=== PATIENT | female | born 1985 | race Caucasian/White ===

== ENCOUNTER 2019-07-19 15:59 | Emergency (ER) | payer SELFPAY ==
[2019-07-19] MEDS ORDERED: Ondansetron 4 MG Tab.DIS PO ONE (16:22)
--- NOTE | 2019-07-19 16:24 | EDM.PDOC ---
ED [facility] GENERAL MEDICAL PROBLEM - General Chief Complaint: Gastrointestinal Problem Stated Complaint: NAUSEA Time Seen by Provider: 07/19/19 16:22 Source of Information: Reports: Patient History Limitations: Reports: No Limitations - History of Present Illness INITIAL COMMENTS - FREE TEXT/NARRATIVE: Patient is a 34-year-old female past medical history of depression presenting with a chief complaint of nausea. Patient reports feeling nauseous for the past 2 to 3 days. Patient states she is associated vomiting and has vomited 1 time today and several times yesterday. The vomit is not bloody or bilious. Patient states that nausea seems to be worse at night. Patient denies any fevers, chills, abdominal pain, back pain, upper respiratory symptoms, body aches. Patient does states she has been having increased urinary frequency but no dysuria and no suprapubic pain. Patient has not taken any medications prior to arrival. Patient reports no bad food no sick contacts. Pmhx: None Pshx: None Family Hx: noncontributory Smoking history? no Etoh use? none Drug use? none In addition to that documented in the HPI above, the additional ROS was obtained : Constitutional: Denies fevers or chills Eyes: Denies vision changes ENMT: Denies sore throat CV: Denies chest pain Resp: Denies SOB GI: Per HPI : Denies painful urination MSK: Denies recent trauma Skin: Denies new rashes Neuro: Denies new numbness or tingling or weakness Endocrine: Denies unexpected weight loss Heme: Denies bleeding disorders I have reviewed the triage vital signs Const: Well nourished, well developed, appears stated age. Well-appearing Eyes: PERRL, no conjunctival injection HENT: NCAT, Neck supple without meningismus CV: RRR, Warm, well-perfused extremities RESP: CTAB, Unlabored respiratory effort GI: soft, non-tender, non-distended, no masses, no guarding or rebound MSK: No gross deformities appreciated Skin: Warm, dry. No rashes Neuro: Alert, direct sales professional II-XII grossly intact. Sensation and motor function of extremities grossly intact. Psych: Appropriate mood and affect Assessment and plan: Patient 34-year-old female presenting with a chief complaint of nausea and urinary frequency. Patient had benign abdominal exam and no real abdominal complaints of the nausea and vomiting. Patient urinalysis demonstrated of urinary tract infection as well as positive test. Based on menstrual. Patient is likely only 2 to 4 weeks . Patient not complaining of vaginal bleeding or lower abdominal pain that would be concerning for an ectopic at this time. Patient is tolerating p.o. after antiemetics given in the ER. Patient initiated on antibiotics in the ER. Patient is new to the area and will be established with [facility] follow-up next week. All questions addressed and answered. Patient agrees with plan. Patient given return precautions to the ER. - Related Data Allergies Allergy/AdvReac Type Severity Reaction Status Date / Time No Known Allergies Allergy Verified 07/19/19 16:08 Home Meds: Home Meds ALPRAZolam [Xanax] 0.5 mg PO ASDIRECTED PRN 07/19/19 [History] Doxylamine Succinate/Vit B6 [Doxylamine-Pyridoxine 10-10 mg] 1 each PO BID PRN # 20 tablet. 07/19/19 [Rx] Nitrofurantoin Monohyd/M-Cryst [Macrobid 100 mg Capsule] 100 mg PO BID #10 capsule 07/19/19 [Rx] Sertraline [Zoloft] 100 mg PO DAILY 07/19/19 [History] Past Medical History Gastrointestinal History: Reports: GERD [facility] History: Reports: Other [facility] History: recent miscarriage, a couple months ago. Psychiatric History: Reports: Anxiety, Depression - Infectious Disease History Infectious Disease History: Reports: Chicken Pox - Past Surgical History Other HEENT Surgeries/Procedures: autoplasty Social & Family History - Tobacco Use Smoking Status *Q: Current Every Day Smoker Years of Tobacco use: 15 Packs/Tins Daily: 0.5 - Caffeine Use Caffeine Use: Reports: Coffee - Recreational Drug Use Recreational Drug Use: Yes ED ROS GENERAL - Review of Systems Review Of Systems: See Below ED EXAM, GI/ABD - Physical Exam Exam: See Below Course - Vital Signs Last Recorded V/S: Last Vital Signs Temp 36.1 C 07/19/19 16:10 Pulse 103 H 07/19/19 16:10 Resp 16 07/19/19 16:10 BP 124/89 07/19/19 16:10 Pulse Ox 99 07/19/19 16:10 - Orders/Labs/Meds Orders: Active Orders 24 hr Category Date Time Status CULTURE URINE [RM] Stat Lab 07/19/19 16:25 Received HCG QUALITATIVE,URINE [URCHEM] Stat Lab 07/19/19 16:22 Ordered UA RFX SOUMYA AND CULT IF INDIC [URIN] Stat Lab 07/19/19 16:22 Ordered Labs: Laboratory Tests 07/19/19 07/19/19 Range/Units 16:22 16:22 Urine Color YELLOW Urine Appearance HAZY Urine pH 5.5 (5.0-8.0) Ur Specific [place] 1.025 (1.001-1.035) Urine Protein 30 H (NEGATIVE) mg/dL Urine Glucose (UA) NEGATIVE (NEGATIVE) mg/dL Urine Ketones TRACE H (NEGATIVE) mg/dL Urine Occult Blood TRACE-LYSED H (NEGATIVE) Urine Nitrite NEGATIVE (NEGATIVE) Urine Bilirubin SMALL H (NEGATIVE) Urine Ictotest NEGATIVE Urine Urobilinogen 0.2 (<2.0) EU/dL Ur Leukocyte Esterase SMALL H (NEGATIVE) Urine RBC 1-5 (0-2/HPF) Urine WBC 20-30 (0-5/HPF) Ur Epithelial Cells FEW (NONE-FEW) Urine Bacteria 3+ H (NEGATIVE) Urine Mucus LIGHT (NONE-MOD) Urine HCG, Qual POSITIVE (NEGATIVE) Meds: Medications Discontinued Medications Generic Name Dose Route Start Last Admin Trade Name Freq PRN Reason Stop Dose Admin Nitrofurantoin Macrocrystals 100 mg 07/19/19 16:51 Macrobid PO 07/19/19 16:52 ONETIME ONE Ondansetron HCl 4 mg 07/19/19 16:22 07/19/19 16:24 Zofran Odt PO 07/19/19 16:23 4 mg ONETIME ONE Administration Departure - Departure Time of Disposition: 16:53 Disposition: Home, Self-Care 01 Clinical Impression: test positive, UTI, Urinary tract infectious disease - Discharge Information Prescriptions: Doxylamine Succinate/Vit B6 [Doxylamine-Pyridoxine 10-10 mg] 1 each PO BID PRN # 20 tablet.dr ANDREWS Reason: Nausea Nitrofurantoin Monohyd/M-Cryst [Macrobid 100 mg Capsule] 100 mg PO BID #10 capsule Instructions: and Urinary Tract Infection Referrals: PCP,Not In Area [Primary Care Provider] - Forms: ED Department Discharge Additional Instructions: The following information is given to patients seen in the emergency department who are being discharged to home. This information is to outline your options for follow-up care. We provide all patients seen in our emergency department with a follow-up referral. The need for follow-up, as well as the timing and circumstances, are variable depending upon the specifics of your emergency department visit. If you don't have a primary care physician on staff, we will provide you with a referral. We always advise you to contact your personal physician following an emergency department visit to inform them of the circumstance of the visit and for follow-up with them and/or the need for any referrals to a consulting specialist. The emergency department will also refer you to a specialist when appropriate. This referral assures that you have the opportunity for follow-up care with a specialist. All of these measure are taken in an effort to provide you with optimal care, which includes your follow-up. Under all circumstances we always encourage you to contact your private physician who remains a resource for coordinating your care. When calling for follow-up care, please make the office aware that this follow-up is from your recent emergency room visit. If for any reason you are refused follow-up, please contact the [facility] Emergency Department at and asked to speak to the emergency department charge nurse. Sepsis Event Note - Evaluation Sepsis Screening Result: No Definite Risk - Focused Exam Vital Signs: Vital Signs Temp Pulse Resp BP Pulse Ox 07/19/19 16:10 36.1 C 103 H 16 124/89 99 Date Exam was Performed: 07/19/19 Time Exam was Performed: 16:53 - My Orders Last 24 Hours: My Active Orders 07/19/19 16:22 HCG QUALITATIVE,URINE [URCHEM] Stat UA RFX SOUMYA AND CULT IF INDIC [URIN] Stat 07/19/19 16:25 CULTURE URINE [RM] Stat - Assessment/Plan Last 24 Hours: My Active Orders 07/19/19 16:22 HCG QUALITATIVE,URINE [URCHEM] Stat UA RFX SOUMYA AND CULT IF INDIC [URIN] Stat 07/19/19 16:25 CULTURE URINE [RM] Stat
[2019-07-19] MEDS ORDERED: Nitrofurantoin Monohydrate/Macrocrystalline 100 MG Cap PO ONE (16:51)
== END 2019-07-19 17:25 | disposition home or self-care (01) ==
LOC: MW.ED 15:59
DX: O23.41 Unspecified infection of urinary tract in pregnancy, first trimester (principal); O99.331 Smoking (tobacco) complicating pregnancy, first trimester; F17.210 Nicotine dependence, cigarettes, uncomplicated; O99.341 Other mental disorders complicating pregnancy, first trimester; F41.9 Anxiety disorder, unspecified; F32.9 Major depressive disorder, single episode, unspecified; Z79.899 Other long term (current) drug therapy
CPT/HCPCS: 81001; 81025; 87086; 87088; 87186; 99283; A9270; 99282

== ENCOUNTER 2019-10-08 08:32 | Day surgery (SDC) | payer SELFPAY ==
[2019-10-07 10:26] LABS: BLOOD UREA NITROGEN,BUN 13 mg/dL (7.0-18.0); CHLORIDE,CL 98 mmol/L (98-107); GLUCOSE RANDOM 92 mg/dL (74-106); POTASSIUM,K 3.2 mmol/L (3.5-5.1); SODIUM,NA 136 mmol/L (136-145)
[~2019-10-08 08:32] MED LIST: Lactated Ringers 1,000 ML IV SCH
[2019-10-08] MEDS ORDERED: Naloxone 0.4 MG/ML Syringe IVPUSH PRN (08:53)
[2019-10-08] MEDS ORDERED: Albuterol 0.083% 2.5 MG/3 ML Neb Soln NEB PRN (08:53)
[2019-10-08] MEDS ORDERED: fentaNYL 100 MCG/2 ML SDV IVPUSH PRN (08:53)
[2019-10-08] MEDS ORDERED: 50% Dextrose in Water 50 ML Syringe IVPUSH PRN (08:53)
[2019-10-08] MEDS ORDERED: EPINEPHrine 1:10,000 1 MG/10 ML Syringe IVPUSH PRN (08:53)
[2019-10-08] MEDS ORDERED: Atropine 0.1 MG/ML 10 ML Syringe IVPUSH PRN ×2 (08:53)
[2019-10-08] MEDS ORDERED: Midazolam 1 MG/ML 2 ML SDV ONE (09:11)
[2019-10-08] MEDS ORDERED: fentaNYL 100 MCG/2 ML SDV ONE (09:12)
[2019-10-08] MEDS ORDERED: Propofol 200 MG/20 ML SDV ONE ×2 (09:12)
[2019-10-08] MEDS ORDERED: Glycopyrrolate 0.2 MG/ML SDV ONE (09:14)
--- NOTE | 2019-10-08 09:15 | PCM.PREANE ---
Preanesthetic Assessment - Anesthesia/Transfusion/Family Hx Anesthesia History: Prior Anesthesia Without Reaction Family History of Anesthesia Reaction: No Transfusion History: No Prior Transfusion(s) Intubation History: Unknown - Review of Systems General: No Symptoms Pulmonary: No Symptoms Cardiovascular: No Symptoms Gastrointestinal: No Symptoms Neurological: No Symptoms Other: Reports: None - Physical Assessment Height: 5 ft 4 in Weight: 52.163 kg ASA Class: 2 Mental Status: Alert & Oriented x3 Airway Class: Mallampati = 1 Dentition: Reports: Normal Dentition (small chips x2 upper front) Thyro-Mental Finger Breadths: 3 Mouth Opening Finger Breadths: 3 ROM/Head Extension: Full Lungs: Clear to Auscultation, Normal Respiratory Effort Cardiovascular: Regular Rate, Regular Rhythm - Lab Values: Laboratory Last Values Sodium 136 mmol/L (136-145) 10/07/19 09:23 Potassium 3.2 mmol/L (3.5-5.1) L 10/07/19 09:23 Chloride 98 mmol/L (98-107) 10/07/19 09:23 Carbon Dioxide 30.0 mmol/L (21.0-32.0) 10/07/19 09:23 BUN 13 mg/dL (7.0-18.0) 10/07/19 09:23 Creatinine 0.9 mg/dL (0.6-1.0) 10/07/19 09:23 Est Cr Clr Drug Dosing 71.84 mL/min 10/07/19 09:23 Estimated GFR (MDRD) > 60.0 ml/min 10/07/19 09:23 Glucose 92 mg/dL (74-106) 10/07/19 09:23 Calcium 9.1 mg/dL (8.5-10.1) 10/07/19 09:23 HCG, Quant 1.0 mIU/mL 10/07/19 09:23 - Allergies Allergies/Adverse Reactions: Allergies Allergy/AdvReac Type Severity Reaction Status Date / Time No Known Allergies Allergy Verified 10/03/19 13:17 - Blood Blood Available: No - Anesthesia Plan Pre-Op Medication Ordered: None - Acknowledgements Anesthesia Type Planned: MAC (general anesthesia back-up plan) Pt an Appropriate Candidate for the Planned Anesthesia: Yes Alternatives and Risks of Anesthesia Discussed w Pt/Guardian: Yes Pt/Guardian Understands and Agrees with Anesthesia Plan: Yes PreAnesthesia Questionnaire HEENT History: Reports: Other (See Below) Other HEENT History: wears glasses/contacts Cardiovascular History: Reports: None Respiratory History: Reports: None Gastrointestinal History: Reports: GERD, Other (See Below) Other Gastrointestinal History: intermittent nausea Genitourinary History: Reports: None SHIRT HEMMER History: Reports: , Spontaneous , Other (See Below) Other OB/BYN History: HPV Musculoskeletal History: Reports: None Neurological History: Reports: None Psychiatric History: Reports: Anxiety, Depression Endocrine/Metabolic History: Reports: None Hematologic History: Reports: None Immunologic History: Reports: None Oncologic (Cancer) History: Reports: None Dermatologic History: Reports: None - Infectious Disease History Infectious Disease History: Reports: Chicken Pox - Past Surgical History Head Surgeries/Procedures: Reports: None HEENT Surgical History: Reports: Other (See Below) Other HEENT Surgeries/Procedures: cosmetic autoplasty-left ear Cardiovascular Surgical History: Reports: None Respiratory Surgical History: Reports: None GI Surgical History: Reports: None Female Surgical History: Reports: None Endocrine Surgical History: Reports: None Neurological Surgical History: Reports: None Musculoskeletal Surgical History: Reports: None Oncologic Surgical History: Reports: None Dermatological Surgical History: Reports: None - SUBSTANCE USE Smoking Status *Q: Light Tobacco Smoker (5 cigarettes per day - trying to quit) Tobacco Use Within Last Twelve Months: Cigarettes - HOME MEDS Home Medications: Home Meds ALPRAZolam [Xanax] 0.5 mg PO ASDIRECTED PRN 07/19/19 [History] Sertraline [Zoloft] 100 mg PO DAILY 07/19/19 [History] Magnesium Oxide/Magnesium [Magnesium] 300 mg PO DAILY 10/03/19 [History] Omeprazole 20 mg PO ASDIRECTED 10/03/19 [History] Potassium Chloride 20 meq PO BID 10/03/19 [History] ondansetron HCL [Zofran] 4 mg PO ASDIRECTED PRN 10/03/19 [History] - CURRENT (IN HOUSE) MEDS Current Meds: Current Medications Albuterol (Proventil Neb Soln) 2.5 mg NEB ONETIME PRN PRN Reason: Wheezing Atropine Sulfate (Atropine 0.1 Mg/Ml) 0.5 mg IVPUSH ASDIRECTED PRN PRN Reason: Hypo-perfusion Atropine Sulfate (Atropine 0.1 Mg/Ml) 1 mg IVPUSH ASDIRECTED PRN PRN Reason: Hypo-Perfusion Dextrose/Water (Dextrose 50% In Water) 50 ml IVPUSH ASDIRECTED PRN PRN Reason: Hypoglycemia Epinephrine HCl (Epinephrine 1:10,000) 1 mg IVPUSH ASDIRECTED PRN PRN Reason: ACLS Guidelines Fentanyl (Sublimaze) 50 - 100 mcg IVPUSH Q5M PRN PRN Reason: Pain Lactated Ringer's (Ringers, Lactated) 1,000 mls @ 100 mls/hr IV ASDIRECTED GABRIEL Naloxone HCl (Narcan) 0.1 mg IVPUSH ASDIRECTED PRN PRN Reason: Respiratory Depression
--- NOTE | 2019-10-08 11:28 | PCM.OPNOTE ---
- General Post-Op/Procedure Note Date of Surgery/Procedure: 10/08/19 Operative Procedure(s): LEEP Pre Op Diagnosis: High grade cervical dysplasia Anesthesia Technique: DERREK Primary Surgeon: Danuta Ye Secondary Surgeon: Bertha Verma Anesthesia Provider: Mojgan Brown [facility] Pathology: Ectocervix open at 12 o'clock; endocervical curettings EBL in mLs: 5 Complications: None known Condition: Good Free Text/Narrative:: 34 yo s/p LEEP for high grade cervical dysplasia, no known complications, patient progressing well
--- NOTE | 2019-10-08 11:39 | PCM.POSTAN ---
POST ANESTHESIA ASSESSMENT - MENTAL STATUS Mental Status: Alert, Oriented - VITAL SIGNS Vital Signs: Last Vital Signs Temp 98.4 F 10/08/19 11:24 Pulse 86 10/08/19 11:35 Resp 14 10/08/19 11:35 BP 95/56 L 10/08/19 11:35 Pulse Ox 100 10/08/19 11:35 - RESPIRATORY Respiratory Status: Respiratory Rate WNL, Airway Patent, O2 Saturation Stable - CARDIOVASCULAR CV Status: Pulse Rate WNL, Blood Pressure Stable - GASTROINTESTINAL GI Status: No Symptoms - PAIN Pain Score: 0 - POST OP HYDRATION Hydration Status: Adequate & Stable
--- NOTE | 2019-10-08 12:06 | OR ---
SURGEON: Danuta Ye M.D. DATE OF PROCEDURE: 10/08/2019 PREOPERATIVE DIAGNOSIS: Cervical intraepithelial neoplasia 3. POSTOPERATIVE DIAGNOSIS: Cervical intraepithelial neoplasia 3. PROCEDURE: Loop electrode excisional procedure. PRIMARY SURGEON: Danuta Ye MD VISUALIZER: ALBA Baker. ANESTHESIA: MAC with cervical block. FINDINGS: Upon colposcopy, the transition zone was entirely visualized. There were two small areas of acetowhite epithelium at 6 and 10 o'clock. SPECIMENS: Ectocervix open at 12 o'clock and endocervical curettings. COMPLICATIONS: None known. DISPOSITION: Stable to Recovery. BRIEF HISTORY: This is a 34-year-old female. She had low-grade SETH positive HPV. However, she had severe dysplasia on colposcopic biopsy. Recommended proceeding with a LEEP procedure. She had preop following miscarriage as the Pap smear was actually performed at the time of her new OB visit. Miscarriage has been completed. HCG is less than 2. However, potassium was markedly hypokalemic. She was placed on potassium and H2 blockers and her potassium preoperatively was 4.8. Risks of the surgery were discussed including bleeding, infection, risk of cervical incompetence with future pregnancies. Understanding these risks, she does desire to proceed. DESCRIPTION OF PROCEDURE: With the patient in dorsal lithotomy position, under adequate IV sedation, a speculum was placed in the vagina. Colposcopy was performed under white light, green light, with and without acetic acid, and findings are as noted above. 1% lidocaine with 1:1000 epinephrine was injected at the 12, 5, and 7 o'clock position for a total of 10 mL. The apple LEEP loop was then utilized starting at 12 o'clock, proceeding in a counterclockwise manner. The specimen was removed and the opening was at 12 o'clock. Sharp curettage of the endocervix was then obtained, collecting with a Cytobrush, and sent as a separate specimen. The base was then coagulated with a pure coag at 60 and treated with Monsel's solution. The cervix was completely hemostatic. Final sponge, needle, and instrument counts were reported as correct. There were no known complications. The patient was transferred to Recovery in good condition. RHEA / ASAEL /[id number]
--- NOTE | 2019-10-08 12:24 | PCM48HPAN ---
Post Anesthesia Note - EVALUATION WITHIN 48HRS OF ANESTHETIC Vital Signs in Normal Range: Yes Patient Participated in Evaluation: Yes Respiratory Function Stable: Yes Airway Patent: Yes Cardiovascular Function Stable: Yes Hydration Status Stable: Yes Pain Control Satisfactory: Yes Nausea and Vomiting Control Satisfactory: Yes Mental Status Recovered: Yes Vital Signs: Last Vital Signs Temp 36.9 C 10/08/19 11:24 Pulse 70 10/08/19 11:40 Resp 16 10/08/19 11:40 BP 93/50 L 10/08/19 11:40 Pulse Ox 99 10/08/19 11:40 - COMMENTS/OBSERVATIONS Free Text/Narrative:: No anesthesia problems
== END 2019-10-08 12:45 | disposition home or self-care (01) ==
LOC: MW.SDS 08:32
PROVIDERS: ATTEND Obstetrics & Gynecology
DX: N87.1 Moderate cervical dysplasia (principal); N87.0 Mild cervical dysplasia; F17.210 Nicotine dependence, cigarettes, uncomplicated; F32.9 Major depressive disorder, single episode, unspecified; F41.9 Anxiety disorder, unspecified; K21.9 Gastro-esophageal reflux disease without esophagitis; Z79.899 Other long term (current) drug therapy
CPT/HCPCS: 36415; 57461; 80048; 84702; J2250; J2704; J3010; J3490; J7120; 00940; 88305; 88307